=== PATIENT | female | born 1950 | race Caucasian/White ===

== ENCOUNTER 2019-07-28 08:34 | Inpatient (IN) | payer MEDICARE, OTHER ==
[~2019-07-28] VITALS: Ht 160 cm; Wt 78.5 kg
[2019-07-28] VITALS (14 sets, daily range): BP systolic 106–133; BP diastolic 43–77; BMI 30.7
--- NOTE | ~2019-07-28 | HEMODYNAMI ---
PATIENT:ROSINA WADE MEDICAL RECORD: [id number] : 52 [facility] ADMISSION DATE: 07/28/19 Generatedon:07/28/20199:46 Patient name: ROSINA WADE Patient #: [id number] SSN: : 1950 Date of study: 07/28/2019 Page: Of Hemodynamic Procedure Report Patient Data Patient Demographics Procedure consent was obtained First Name: ROSINA Gender: Female Last Name: MAURO : 1950 Patient #: [id number] Age: 68 year(s) Race: Unknown Additional ID: [id number] Contact details Address: Counts include [address] beds at the [facility] NO KNOWN ADDRESS State: [place] City: [facility] Zip code: [address] Past Medical History Allergies: No known allergies Admission Admission Data Admission Date: 07/28/2019 Admission Time: 8:51 Arrival Date: 07/28/2019 Arrival Time: 0:00 Admit Source: Emergency department Room #: [facility] Procedure Procedure Types Cath Procedure Diagnostic Procedure [facility] w/Coronaries FFR/IVUS FFR Initial Sedation Charges Moderate Sedation up to 30 minutes PCI Procedure AMI/SVG/CROSS COUNTRY COACH PTCA or Stent AMI-BMS/TRAVIS Initial Peripheral Cath Diagnostic Procedure Wood Model Maker Peripheral Procedures AFRO (Diagnostic) Peripheral vascular Intervention Stent Stent Iliac w/plasty Initial Procedure Description Procedure Date Procedure Date: 07/28/2019 Procedure Start Time: 9:03 Procedure End Time: 9:39 Procedure Staff Name Function Matt Tobar MD Performing Physician Tyesha Rausch RT Monitor Nimo Beaver RN Nurse Ariana Monte RT Scrub Audra Gonzales RT Monitor Indication Unstable angina Procedure Data Cath Procedure Fluoroscopy Diagnostic fluoroscopy Total fluoroscopy Time: 6.1 time: 6.1 min min Diagnostic fluoroscopy Total fluoroscopy dose: 703 dose: 703 mGy mGy Contrast Material Contrast Material Type Amount (ml) Isovue 300 192 Entry Location Entry Primary Successful Side Size Upsize 1 Upsize Entry Closure Joseph ccessful Closure Location (Fr) (Fr) 2 (Fr) Remarks Device Remarks Femoral Right 6 Fr 6 Fr Exoseal artery Short Mid-Length Femoral Right 6 Fr vein Short Estimated blood loss: 10 ml Diagnostic catheters Device Type Used For End Catheter Placement MULTIPACK 3DRC 5Fr Procedure catheter MULTIPACK JL 4.0 5Fr Procedure catheter MULTIPACK Pigtail 5 Fr Procedure catheter Procedure Complications No complications Procedure Medications Medication Administration Route Dosage 0.9% NaCl I.V. 100 ml/hr Oxygen etCO2 Nasal cannula 2 l/min Lidocaine 2% added to field 20 Heparin Flush Bag added to field 2 bags (1000units/500ml NS) Versed 2 mg Fentanyl I.V. 50 mcg Fentanyl I.V. 50 mcg Heparin Bolus I.V. 4000 units Integrilin (Bolus I.V. 5.6 ml 2mg/ml) Integrilin (Bolus wasted 4.4 ml 2mg/ml) Hemodynamics Rest Heart Rate: 72 (bpm) Snapshots Pre Cath Intra NCS Post Cath Vital Signs Time Heart Resp SPO2 etCO2 NIBP Rhythm Pain Sedation Rate (ipm) (%) (mmHg) (mmHg) Status Level (bpm) 8:59:38 85 13 94 16.6 113/68(80) NSR 0 (11) 10(A) , No pain 9:03:42 68 26 95 12.8 103/66(78) NSR 0 (11) 10(A) , No pain 9:07:42 64 21 94 17.4 94/70(76) NSR 0 (11) 10(A) , No pain 9:11:46 78 20 95 17.4 99/57(80) NSR 0 (11) 9(A) , No pain 9:15:54 83 21 95 20.4 93/53(66) NSR 0 (11) 9(A) , No pain 9:19:57 46 18 96 15.9 81/57(64) NSR 0 (11) 9(A) , No pain 9:23:55 73 25 96 20.4 93/62(76) NSR 0 (11) 9(A) , No pain 9:27:54 71 27 97 18.9 99/68(86) NSR 0 (11) 10(A) , No pain 9:31:56 76 17 97 19.7 103/70(81) NSR 0 (11) 10(A) , No pain 9:36:00 76 23 96 10.6 108/67(90) NSR 0 (11) 10(A) , No pain Medications Time Medication Route Dose Verified Delivered Reason Notes Effectiveness by by 8:55:11 0.9% NaCl I.V. 100 Matt Nimo used for ml/hr Amadou Beaver automatic washer mechanic 8:55:17 Oxygen etCO2 2 Matt Nimo used for Nasal l/min Amadou Beaver procedure cannula RN 8:56:04 Lidocaine 2% added 20ml Matt Matt for local to vial Amadou Tobar MD anesthetic field 8:56:08 Heparin Flush added 2 Matt Matt used for Bag to bags Amadou Tobar MD procedure (1000units/500ml field NS) 9:00:49 Versed 2 mg Matt Nimo for sedation Amadou Beaver RN 9:00:56 Fentanyl I.V. 50 Matt Nimo for sedation mcg Amadou Beaver RN 9:06:20 Fentanyl I.V. 50 Matt Nimo for sedation mcg Amadou Beaver RN 9:09:20 Heparin Bolus I.V. 4000 Matt Nimo for verifi ed units Amadou Beaver anticoagulation with Dr. JIMMY Tobar 9:09:33 Integrilin I.V. 5.6 Matt Nimo for (Bolus 2mg/ml) ml Amadou Beaver antiplatelet RN therapy 9:09:44 Integrilin wasted 4.4 Matt Nimo for (Bolus 2mg/ml) ml Amadou Beaver antiplatelet RN therapy Procedure Log Time Note 8:46:54 Admit Source: Emergency department 8:46:57 Arrival Date: 07/28/2019 12:00:00 AM 8:47:38 Diagnostic Cath Status : Emergency 8:48:52 Indication : Unstable angina 8:49:10 ACC Patient presents with STEMI CCS Anginal Class 4--Inability to carry out any physical activity w/o angina. Angina may occur at rest. 8:49:19 Procedure Status Emergent Heart Cath (AMI). 8:49:22 Audra Gonzales RT(R) sent for patient. Start room use. 8:49:24 Time tracking: Regular hours (M-F 7:00 - 5:00) 8:49:29 Plan of Care:Hemodynamics will remain stable., Cardiac rhythm will remain stable., Comfort level will be maintained., Respiratory function will remain adequate., Patient/ family verbilizes understanding of procedure., Procedure tolerated without complication., Recovers from procedure without complications.. 8:49:32 Patient arrives emergently. 8:49:41 Patient received from ED to CCL 1 Alert and oriented. Tansferred to table in Supine position. 8:50:03 H&P Date Dictated: 07/28/2019 Emergent; H&P N/A. 8:50:15 Use device set Femoral Dx 8:50:16 ACIST Syringe (35844) opened to sterile field. 8:50:17 Bag Decanter (2002S) opened to sterile field. 8:50:17 Medline Cath Pack ([id number]) opened to sterile field. 8:50:19 ACIST Hand Control (14942) opened to sterile field. 8:50:20 ACIST Manifold (82351) opened to sterile field. 8:50:21 DIAGNOSTIC Multipack 5Fr catheter set ([id number]) opened to sterile field. 8:50:24 EMERALD Guide Wire (502-455) opened to sterile field. 8:50:52 CHOICE PT Extra Support 182cm wire ([id number]) opened to sterile field. 8:50:53 SHEATH 6FR Garvin (CRO741) opened to sterile field. 8:50:55 INFLATOR Merit BasixCompak ([id number]) opened to sterile field. 8:53:48 Signed procedure consent form obtained from patient. 8:53:49 Warm blankets applied, and satnam hugger turned on for patient comfort. 8:53:50 Correct patient and procedure confirmed by team. 8:53:53 Pre-procedure instructions explained to patient. 8:54:02 Family unavailable. 8:54:27 Patient NPO since Midnight. 8:54:47 Patient allergic to No known allergies 8:54:50 Is the patient allergic to Iodine/contrast media? No. 8:54:52 Was the patient premedicated? Yes 8:55:01 Is patient on blood thinner?No 8:55:11 0.9% NaCl 100 ml/hr I.V. was administered by Nimo Beaver RN; used for procedure; Verbal order read back and verified. 8:55:17 Oxygen 2 l/min etCO2 Nasal cannula was administered by Nimo Beaver RN; used for procedure; Verbal order read back and verified. 8:55:53 Patient diabetic? No. 8:56:01 Snore? No 8:56:03 Sleep apnea? No 8:56:04 Lidocaine 2% 20ml vial added to field was administered by Matt Tobar MD; for local anesthetic; Verbal order read back and verified. 8:56:08 Heparin Flush Bag (1000units/500ml NS) 2 bags added to field was administered by Matt Tobar MD; used for procedure; Verbal order read back and verified. 8:56:12 Dentures? No ? 8:56:22 Patient pain scale 4/10 ?. 8:56:32 IV patent on arrival in right antecubital with 0.9% NaCl at [facility]. 8:56:59 Stress Test: yes; N/A ? 8:57:18 Right groin area was prepped with chlora-prep and draped in sterile fashion 8:57:20 Alarms reviewed by R. N. 8:57:20 Sharps counted by scrub and verified by R.N. 8:57:41 Deviated septum? No 8:57:41 Opens mouth fully? Yes 8:57:42 Sticks out tongue? Yes 8:57:43 Airway obstruction? No ? 8:57:57 Lab results pending. 8:58:10 Patient not . Patient is over age 55. 8:58:12 Previous problem with sedation/anesthesia? No ? 8:58:21 Vital chart was started 8:59:17 Baseline sample Acquired. 8:59:18 ECG and BP/O2 sat monitors applied to patient. 8:59:23 Rhythm: sinus rhythm 8:59:24 Full Disclosure recording started 8:59:42 --------ALL STOP TIME OUT------ 8:59:43 Final Timeout: patient, procedure, and site verified with staff and physician. All members of the team are in agreement. 8:59:45 Right groin site verified by team. 8:59:49 Fire Safety Assessment: A--An alcohol-based skin anteseptic being used preoperatively., C--Open oxygen or nitrous oxide is being used., D--An ESU, laser, or fiber-optic light is being used. 8:59:52 Physical assessment completed. ASA score P 3 - A patient with severe systemic disease as per Matt Tobar MD. 8:59:56 Sedation plan: IV Moderate Sedation Medication:Versed, Fentanyl 9:00:49 Versed 2 mg was administered by Nimo Beaver RN; for sedation; Verbal order read back and verified. 9:00:56 Fentanyl 50 mcg I.V. was administered by Nimo Beaver RN; for sedation; Verbal order read back and verified. 9:02:24 Procedure started. 9:03:13 Local anesthetic to right femoral artery with Lidocaine 2% by Matt Tobar MD.INITIAL ACCESS ONLY 9:03:37 IV Extension Set opened to sterile field. 9:05:05 GLIDE WIRE Super Stiff Angled 260cm ([id number]) opened to sterile field. 9:05:39 GLIDE WIRE USED TO ADVANCE SHEATH. 9:06:20 Fentanyl 50 mcg I.V. was administered by Nimo Beaver RN; for sedation; Verbal order read back and verified. 9:06:37 A 6 Fr Short sheath was inserted into the Right Femoral artery 9:06:45 A MULTIPACK 3DRC 5Fr catheter was advanced over the wire and used for Procedure. 9:06:53 RCA angiography performed. 9:07:00 Catheter exchanged over wire. 9:07:23 A MULTIPACK JL 4.0 5Fr catheter was advanced over the wire and used for Procedure. 9:08:37 LCA angiography performed. 9:08:38 Catheter exchanged over wire. 9:08:42 ACCDominant side:Left 9:08:48 GUIDE 6FR XBLAD 3.5 catheter ([id number]) opened to sterile field. 9:09:18 6 Fr XBLAD 3.5 guide catheter was inserted over the wire 9:09:20 Heparin Bolus 4000 units I.V. was administered by Nimo Beaver RN; for anticoagulation; verified with Dr. Tobar Verbal order read back and verified. 9:09:33 Integrilin (Bolus 2mg/ml) 5.6 ml I.V. was administered by Nimo Beaver RN; for antiplatelet therapy; Verbal order read back and verified. 9:09:44 Integrilin (Bolus 2mg/ml) 4.4 ml wasted was administered by Nimo Beaver RN; for antiplatelet therapy; Verbal order read back and verified. 9:09:57 CHOICE ES 182 wire advanced. 9:10:32 Wire advanced across lesion. 9:11:37 Place stent Inflation Number: 1 A JACKELIN RX 3.0 x 15 stent ([id number]) was prepped and advanced across the Prox LAD . The stent was deployed at 11 JOZEF for 0:00 (min:sec) . 9:12:04 Stent catheter was removed intact over wire. 9:14:31 Place stent Inflation Number: 1 A JACKELIN RX 2.25 x 15 stent ([id number]) was prepped and advanced across the Mid LAD . The stent was deployed at 13 JOZEF for 0:00 (min:sec) . 9:14:56 Stent catheter was removed intact over wire. 9:14:58 Wire removed. 9:15:07 [employer]oupe [employer] Verrata Plus pressure wire (24066W) opened to sterile field. 9:15:56 FFR/IFR wire advanced. 9:16:34 mCirc lesion measured at .92 with IFR 9:16:44 Wire removed. 9:16:48 Guide catheter removed. 9:16:55 A MULTIPACK Pigtail 5 Fr catheter was advanced over the wire and used for Procedure. 9:17:40 LV gram done using JOLLY 9:17:44 Injector settings: Ml/sec: 10, Volume: 20, 9:19:39 EF : 10 % 9:20:00 A 6 Fr Short sheath was inserted into the Right Femoral vein 9:20:36 5Fr J Tip Temporary Pacing Catheter ([id number]) opened to sterile field. 9:20:42 SHEATH 6FR Garvin (DFA553) opened to sterile field. 9:20:55 Temporary pacer inserted 9:22:19 PIGTAIL PULLED DOWN FOR AFRO. 9:22:23 Abdominal angiogram w/ runoff was performed. 9:22:36 Right leg runoff performed. 9:22:37 Left leg runoff performed. 9:22:55 Catheter exchanged over wire. 9:23:06 SHEATH 6FR Brite Tip 35cm ([id number]) opened to sterile field. 9:23:35 Sheath upsized to a 6 Fr Mid-Length. 9:24:47 Procedure type changed to Cath procedure, Diagnostic procedure, LHC, [facility] w/Coronaries, FFR/IVUS, FFR Initial, Sedation Charges, Moderate Sedation up to 30 minutes, PCI procedure, AMI/SVG/CROSS COUNTRY COACH PTCA or Stent, AMI-BMS/TRAVIS Initial, Peripheral Cath Diagnostic Procedure, Wood Model Maker Peripheral Procedures, AFRO (Diagnostic), Peripheral vascular Intervention, Stent, Stent Iliac w/plasty Initial 9:25:45 Place stent Inflation Number: 1 A TIFFANIE 7 x 29 x 135 stent ([id number]) was prepped and advanced across the Proximal Common Iliac, Right . The stent was deployed at 13 JOZEF for 0:00 (min:sec) . 9:26:01 Stent catheter was removed intact over wire. 9:27:46 LONG SHEATH EXCHANGED FOR A SHORT SHEATH. 9:27:55 EXOSEAL 6Fr (EX600) opened to sterile field. 9:29:38 Wire removed. 9:29:47 ACT drawn and resulted at >400 seconds. (normal therapeutic range 180-240 seconds). 9:30:08 Sheath removed intact; hemostasis achieved with Exoseal to the Right Femoral artery. 9:30:31 Procedure ended.(Physican Out) 9:31:10 2-0 Silk 685H opened to sterile field. 9:33:05 Fluoroscopy time 06.10 minutes. 9:33:09 Fluoroscopy dose: 703 mGy 9:33:09 Flurop Dose total: 703 9:33:16 Dose Area Product 16528 mGy/cm. 9:33:19 Contrast amount:Isovue 300 192ml. 9:33:27 Sharps counted by scrub and verified by R.N. 9:33:44 Post-op/insertion site Right Femoral artery dressed using a 4 x 4 and Tegaderm. 9:34:09 6FR SHEATH VEIN was sutured in with 2-0 SILK. 9:34:18 Post-procedure physical assessment completed. ASA score P 3 - A patient with severe systemic disease as per Matt Tobar MD. 9:34:29 Post procedure rhythm: sinus rhythm , paced 9:34:33 Estimated blood loss: 10 ml 9:34:40 Pre PCI Site: [place] pLAD has 99% stenosis. 9:34:48 Post procedure instruction explained to patient.Patient verbalizes understanding. 9:34:49 Patient needs reinforcement of post procedure teaching. 9:38:29 Procedure and supply charges have been captured, reviewed, submitted and are correct. 9:38:31 Procedure Complication : No complications 9:38:34 Vital chart was stopped 9:38:41 LHC Findings: MVD- PCI performed (see procedure note) 9:38:44 AFRO Findings: PVD: NO EXPERIENCE performed (see procedure notes) 9:38:46 Operative report dictated upon procedure completion. 9:38:47 See physician's report for complete and final results. 9:38:50 Report given to ICU. 9:38:52 Patient transfered to ICU with Bed. 9:38:58 ACC-PCI Only Patient was given prescriptions, or instructed by Matt Tobar MD to start/continue the following medications upon discharge: Plavix 9:39:03 Procedure ended. 9:39:03 Full Disclosure recording stopped 9:39:07 End room use (Document Last) 9:42:33 Temporary pacer turned on with the following settings: Rate 40, MA 5, Mode: Demand. Intervention Summary Intervention Notes Time ActionType Lesion and Equipment Used Action# Pressure Duration Attributes 9:11:37 Place stent Prox LAD JACKELIN RX 3.0 x 1 11 00:00 15 stent ([id number]) 9:14:31 Place stent Mid LAD JACKELIN RX 2.25 x 1 13 00:00 15 stent ([id number]) 9:25:45 Place stent Proximal TIFFANIE 7 x 29 1 13 00:00 Common x 135 stent Iliac, ([id number]) Right Device Usage Item Name Manufacture Quantity Catalog Number Hospital Part Current Minimal Lot# / Charge Number Stock Stock Serial# Code ACIST Syringe Acist 1 53259 129636 655072 721345 20 (54055) Medical Systems Inc Bag Decanter Microtek 1 520710 15170 057384 5 () Medical Inc. Medline Cath Medline 1 [id number] 771714 63703 769068 5 Pack ([id number]) ACIST Hand Acist 1 34151 908611 642729 623172 5 Control Medical (71209) Systems Inc ACIST Manifold Acist 1 45832 294715 612111 421184 5 (33060) Medical Systems Inc DIAGNOSTIC Cardinal 1 IT6931 575524 00336 843307 30 Multipack 5Fr Health catheter set (VM3292) EMERALD Guide Cardinal 1 502-455 816031 273487 617214 5 Wire (502-455) Health CHOICE PT [place] 1 [id number] 386044 114149 173323 5 Extra Support Scientific 182cm wire ([id number]) SHEATH 6FR Terumo 2 RZM078 470513 903470 389613 40 Garvin (YFA691) INFLATOR Merit Merit 1 WU7639 820007 807955 023547 15 [facility] Medical (GC4250) IV Extension Hospira 1 95535-86 119439 39670 012254 5 Set GLIDE WIRE Terumo 1 LP2237 821760 777720 085408 5 Super Stiff Angled 260cm (RB5100) MULTIPACK 3DRC Cardinal 1 299383 5 5Fr catheter Health MULTIPACK JL Cardinal 1 052406 5 4.0 5Fr Health catheter GUIDE 6FR Cardinal 1 12924853 393153 218720 259573 10 XBLAD 3.5 Health catheter (87501271) JACKELIN RX 3.0 x Medtronic 1 [id number] 988914 8466662 430805 5 [id number] 15 stent ([id number]) JACKELIN RX 2.25 x Medtronic 1 [id number] 041372 4822242 426192 5 [id number] 15 stent ([id number]) Akron Akron 1 13387G 748540 279035404 777564 5 Verrata Plus pressure wire (97260J) MULTIPACK Cardinal 1 657802 5 Pigtail 5 Fr Health catheter 5Fr J Tip Iniguez 1 [id number] 024894 82618 123991 2 Temporary Lifesciences Pacing Catheter ([id number]) SHEATH 6FR Cardinal 1 [id number] 540675 077292 314518 1 Brite Tip 35cm Health (811786Y) TIFFANIE 7 x 29 Cardinal 1 [id number] 214876 92766 712405 5 x 135 stent Health ([id number]) EXOSEAL 6Fr Cardinal 1 EX600 754796 127227 794508 10 (EX600) Health 2-0 Silk 685H Ethicon 1 685H 6822056 59278 987348 5 Signature Audit [place] Stage Time Signature Unsigned Intra-Procedure 07/28/2019 Audra Gonzales 9:46:14 AM RT(R) Intra-Procedure 07/28/2019 Nimo Beaver 9:46:40 AM RN Intra-Procedure 07/28/2019 Matt Tobar 9:46:55 AM [facility] [address] [place] [address]
--- NOTE | ~2019-07-28 | DS ---
PATIENT:ROSINA WADE :52 MEDICAL RECORD: [id number] DISCHARGE SUMMARY ADMISSION DATE: 07/28/19 DISCHARGE DATE: 07/31/19 DIAGNOSES: 1. Acute myocardial infarction. 2. Coronary artery disease. 3. Percutaneous transluminal coronary angioplasty stent left anterior descending this admission. HOSPITAL COURSE: Mrs. Wade presents with an acute anterior myocardial infarction. Unfortunately, she waited at home for 4 days having her myocardial infarction. She underwent successful PTCA stent of the LAD; however, ejection fraction was in the 10% range. She did remarkably well. She was placed on losartan 25 mg b.i.d., aspirin, Plavix, resume her Zocor that she was on at home. No beta marco a was undertaken secondary to bradycardia and hypotension. She will follow up with [facility] in 1 month. TRANSINT:[id number] Voice Confirmation ID: [id number] DOCUMENT ID: [id number] ANTONINO GEORGE MD CC: [id number] DICTATION DATE: 07/31/19 1026 SURFACE GRINDER TENDER: 08/01/19 0113 DIS IN 07/31/19 [facility] [address] [place] [address]
[2019-07-28 09:03] LABS: HEMATOCRIT 39.9 % (36.0-48.0); HEMOGLOBIN 13.6 g/dL (12-16); MCH 30.6 pg (26.0-34.0); MCHC 34.1 g/dL (31.0-37.0); MCV 89.9 fL (80.0-100.0); MEAN PLATELET VOLUME 9.8 fL (7.4-10.4); PLATELET COUNT 253 10x3/uL (130-400); RBC 4.44 10x6/uL (4.00-5.40); RDW 13.4 % (11.5-14.5); WBC 23.7 10x3/uL (4.8-10.8)
[2019-07-28] MEDS ORDERED: ZOLOFT100 MG PO (09:03)
[2019-07-28] MEDS ORDERED: ZOCOR20 MG PO (09:03)
[2019-07-28] MEDS ORDERED: TOPROL XL50 MG PO (09:03)
[2019-07-28] MEDS ORDERED: LISINOPRIL20 MG PO (09:04)
[2019-07-28 09:07] LABS: CALC OSMOLALITY 289 mosm/kg (275-300); CALCIUM 8.6 mg/dL (8.5-10.1); CHLORIDE - SERUM 110 mmol/L (98-107); CREATININE - SERUM 0.9 mg/dL (0.6-1.3); GLUCOSE 143 mg/dL (74-106); POTASSIUM - SERUM 4.1 mmol/L (3.5-5.1); SODIUM 143 mmol/L (136-145); UREA NITROGEN 22 mg/dL (7-18); eGFR NON AFRICAN AMERICAN 66 mL/min (90-120)
[2019-07-28 09:18] LABS: INR 1.22 (0.85-1.17); PROTIME 14.8 SECONDS (11.6-15.0)
[2019-07-28 09:28] LABS: ALBUMIN 3.4 g/dL (3.4-5.0); ALKALINE PHOSPHATASE 64 U/L (46-116); ALT (SGPT) 54 U/L (10-68); BILIRUBIN - TOTAL 0.33 mg/dL (0.2-1.3); CREATINE KINASE 361 UL (21-215); MAGNESIUM - SERUM 1.9 mg/dL (1.8-2.4)
[2019-07-28 09:33] LABS: TROPONIN-I 4.352 ng/mL (0.000-0.060)
[2019-07-28 09:49] LABS: APTT 194.4 SECONDS (22.8-39.4)
--- NOTE | 2019-07-28 10:17 | NUR ---
ASSESSMENT COMPLETE PER FLOW SHEET. VSS. REFER FOR COMPLETE FINDINGS. R GROIN CATH SITE DI, MINIMAL BLEEDING NOTED ON DRSG SHIPPING COORDINATOR AWARE. NO HEMATOMA, PAIN BRUISING OR SWELLING NOTED TO SITE. TPM WIRE SITE PATENT TPM DDD AMA 0.8 VMA 5 A-SENS 0.5 V-SENS 2.0 A-V INTERVAL 24. HR 81 NSR BP 106/81. BILAT PEDAL PULSES PALP +2 R RADIAL PULSE FOUND VIA DOPPLER HARDLY AUDIBLE. L RADIAL PULSE PALP +2. PT GIVEN ICE CHIPS FOR COMFORT.
[2019-07-28 10:41] LABS: LYMPHOCYTES 12 % (15-50); MONOCYTES 9 % (2-11); NEUTROPHILS 79 % (40-80)
[2019-07-28 10:42] LABS: PLATELET ESTIMATE NORMAL; ROULEAUX OCC
--- NOTE | 2019-07-28 11:02 | NUR ---
patient complaining of sob. trying to raise up in bed because she states she feels like she cant catch her breath. will continue to monitor. high flow provided and titrated o2 to 8 L spo2 86%
--- NOTE | 2019-07-28 11:15 | NUR ---
SPOKE WITH PATIENT REGARDING CODE STATUS. FULL CODE.
--- NOTE | 2019-07-28 11:15 | NUR ---
CHEST XR AT BEDSIDE
--- NOTE | 2019-07-28 11:30 | NUR ---
SPOKE WITH DR GEORGE REGARDING DESATURATION OF OXYGEN. NEW ORDERS TO GIVE 40 OF LASIX NOW AND START ON DOBUTAMINE DRIP AT FIXED RATE OF 5
--- NOTE | 2019-07-28 11:54 | NUR ---
pulses palp in lower extremities bilat. no s/s of bleeding or hematoma. log rolled patient for use of bedpan
--- NOTE | 2019-07-28 12:46 | NUR ---
ECHO AT BEDSIDE
--- NOTE | 2019-07-28 15:28 | NUR ---
PATIENT 4 HOUR STRAIGHT LEG OVER. RESTING. EASILY AROUSED. NO ACUTE DISTRESS. SEE ASSESSMENT. NO CHANGES. SEE ADL'S.
--- NOTE | 2019-07-28 16:18 | NUR ---
patient started to vomit. zofran given. hr up to 158. dobutamine paused. paged dr gutiérrez
--- NOTE | 2019-07-28 16:36 | NUR ---
st mireles paged back. new orders given
[2019-07-29] VITALS (24 sets, daily range): BP systolic 108–138; BP diastolic 27–81; Ht 160 cm; Wt 78.5 kg
--- NOTE | 2019-07-29 07:26 | NUR ---
REPORT RECIEVED. OFF DOBUTAMINE DRIP. HR NSR. BP STABLE. SEE ASSESSMENT. SEE ADL'S. NO ACUTE DISTRESS. 3 L NC. DENIES PAIN AND NEEDS DURING THIS TIME. BED RAILS X2. BED LOW AND LOCKED. TEMPORARY PACEMKAER HANGING AT BEDSIDE. SETTING THIS MORNING IS DDD 40 RATE AMA .8 VMA 5 A SENSITIVITY .5 V SENSITIVITY 2.0 A-V INTERVAL 24
--- NOTE | 2019-07-29 11:20 | NUR ---
GOT A HOLD OF DR GEORGE TO GET A DIET FOR THE PATIENT
--- NOTE | 2019-07-29 11:20 | NUR ---
NO S/S OF BLEEDING OR HEMATOMA. PATIENT MOVES AROUND INDEPENDENTLY IN BED. WILL CONTINUE TO MONITOR PATINET.
--- NOTE | 2019-07-29 12:00 | NUR ---
DR GEORGE STATED IF SHE STAYS ABOVE THE PACEMAKER THAN I NEEDED TO PULL IT
--- NOTE | 2019-07-29 12:00 | NUR ---
PACEMAKER TURNED OFF BY DR GEORGE
--- NOTE | 2019-07-29 13:25 | NUR ---
patient tray provided. tolerating well. tolerating liquids. educated on zofran. denies pain and needs. will continue to monitor
--- NOTE | 2019-07-29 15:53 | NUR ---
TJ FROM [employer]HALT DISTRIBUTOR OPERATOR AT BEDSIDE. PULLED TEMPORARY PACEMAKER. NO RYTHM CHANGES. SINUS AT 92 BPM.
--- NOTE | 2019-07-29 16:32 | NUR ---
NO S/S OF BLEEDING OR HEMATOMA. LYING FLAT. NO EKG CHANGES
--- NOTE | 2019-07-29 17:22 | NUR ---
chg bath and linen change done at this time.
[2019-07-30] VITALS (15 sets, daily range): BP systolic 92–121; BP diastolic 50–72
--- NOTE | 2019-07-30 13:00 | NUR ---
REPORT RECIEVED FROM ABAD GREENFIELD RN. VSS. PT DENIES PAIN AT THIS TIME. RIGHT GROIN SOFT TO PALPATION. CALL LIGHT IN REACH. WILL CONT POC.
--- NOTE | 2019-07-30 14:04 | HP ---
PATIENT: ROSINA WADE MEDICAL RECORD: [id number] ACCOUNT: [id number] LOCATION:[facility] : 52 ADMISSION DATE: 07/28/19 PCP: ANTONINO GEORGE MD HISTORY AND PHYSICAL EXAMINATION DIAGNOSES: 1. Acute anterior myocardial infarction. 2. Coronary artery disease. 3. Previous percutaneous transluminal coronary angioplasty stent. HISTORY OF PRESENT ILLNESS: Mrs. Wade has a history of PTCA stent in the distant past, has been having 4 days of chest pain, presented to [facility] with the chest pain, was diagnosed with an acute anterior myocardial infarction, transferred here for higher level of care. PHYSICAL EXAMINATION: CONSTITUTIONAL/GENERAL APPEARANCE: Well nourished, well developed, appears stated age. EYES: Lids and conjunctivae noninjected. No discharge. No pallor. ENT: Lips within normal limit. No cyanosis. No pallor. NECK: Carotid arteries, bilateral normal upstroke. No bruits. No thrills. No jugular venous pressure or distention. CERVICAL LYMPH NODES: Nontender. Nonenlarged. THYROID: Not enlarged. No nodules. CARDIOVASCULAR: Precordial exam, nondisplaced. No heaves or pericardial thrills. Rate and rhythm, regular. Heart sounds, normal S1, normal S2. No S3, no gallop, no rub. Systolic murmur, not heard. Diastolic murmur, not heard. RESPIRATORY: Respiratory effort, unlabored. Normal curvature. No thoracic deformity. No chest wall tenderness. Percussion, resonant. Auscultation, clear. No wheezes, no rales, no rhonchi. ABDOMEN: Soft, nondistended, nontender. No abdominal pain, no vomiting and normal appetite. MUSCULOSKELETAL: No joint tenderness, normal gait, normal tone. SKIN: Warm and dry. OVERALL IMPRESSION: Acute anterior myocardial infarction. We will proceed with coronary angiography. Further care depends upon the findings of the angiography. TRANSINT:[id number] Voice Confirmation ID: [id number] DOCUMENT ID: [id number] ANTONINO GEOREG MD at 1404 CC: [id number] DICTATION DATE: 07/28/19934 PER DIEM: 07/28/19 0954 ADM IN [place] [id number] [place] [address]
--- NOTE | 2019-07-30 14:04 | OP ---
PATIENT NAME: ROSINA WADE MEDICAL RECORD: [id number] :52 LOCATION[facility] D.2311 ADMISSION DATE:07/28/19 SURGEON: ANTONINO GEORGE MD DATE OF OPERATION: 07/28/2019 PROCEDURE: 1. PTCA stent LAD. 2. Left heart catheterization. 3. Selective coronary angiography. 4. Left ventriculogram. INDICATION: Acute anterior myocardial infarction. PROCEDURE PERFORMED: After informed consent was obtained and after a detailed description of risks, benefits as well as alternative therapies, the patient elected to proceed with angiogram and angioplasty. The right femoral area was cannulated via modified Seldinger technique with placement of a 6-Sami arterial and venous sheath, a temporary pacemaker was undertaken secondary to bradycardia during the procedure. FINDINGS: Left ventriculogram was performed in standard 30-degree JOLLY view, reveals global hypokinesis throughout all segments. Overall ejection fraction is 10%. SELECTIVE CORONARY ANGIOGRAPHY: 1. Left main is with no significant angiographic disease. 2. Left anterior descending has 99% stenosis followed by a 90% stenosis in the mid vessel. 3. Left circumflex has mild irregularities, but no flow-limiting stenosis. 4. Right coronary has 100% stenosis in the mid vessel. This is chronic total occlusion. PTCA STENT OF THE LAD: The stents used were 3.0 x 15 and 2.25 x 15, both [place] stents. Result was 0% residual stenosis. OVERALL IMPRESSION: Successful percutaneous transluminal coronary angioplasty stent of the left anterior descending going from 99% initial stenosis to 0% residual. TRANSINT:[id number] Voice Confirmation ID: [id number] DOCUMENT ID: [id number] ANTONINO GEORGE MD at 1404 CC: [id number] DICTATION DATE: 07/28/19 0934 SENIOR CREDIT OFFICER: 07/28/19 1146 [place] [address]
--- NOTE | 2019-07-30 14:04 | EC ---
PATIENT:ROSINA WADE DATE OF SERVICE: 07/28/19 SEX: F MEDICAL RECORD: [id number] DATE OF : [birth year] LOCATION:[facility] D231 AGE OF PATIENT: 68 ADMISSION DATE: 07/28/19 REFERRING PHYSICIAN: INTERPRETING PHYSICIAN: ANTONINO TOBAR MD ECHOCARDIOGRAM REPORT ECHO CHARGES 4 ECHO COMPLETE Date: 07/28/19 CLINICAL DIAGNOSIS: RI/ASSESS EF ECHOCARDIOGRAPHIC MEASUREMENTS (adult normal given) AC root (d.<3.7cm) 3.1 cm LV Septum d (<1.2 cm> 1.2 cm Valve Excursion 1.1 cm LV Septum (systole) 1.3 cm Left Atria (s.<4.0cm> 4.4 cm LVPW d(<1.2cm) 1.3 cm RV (d.<2.3cm) 3.2 cm LVPW (sytole) 1.4 cm LV diastole(<5.6CM) 5.8 cm MV E-F(>70mm/sec) cm LV systole 4.9 cm LVOT Diameter 1.9 cm MV exc.(>10mm) 1.3 cm Est.ejection fraction (50-75%) % DOPPLER: LVIT cm/sec A 111.0cm/sec E cm/sec LA cm/sec RVSP 39 mmHg LVOT 68.0 cm/sec AOP1/2T m/s Asc. Ao 119 cm/sec RVOT cm/sec RA cm/sec PA cm/sec AV Gradient Peak 5.65 mmHg AV Mean 3.14 mmHg AV Area 1.6 cm MV Gradient Peak 9.45 mmHg MV Mean 4.17 mmHg MV Area cm COMMENTS: Blueprint Assembler: Vale CAMPO Continuous Dryout Operator Helper: 1 Dr. Tobar TAPE# PACS Pericardial Effusion N DATE OF SERVICE: ECHOCARDIOGRAM FINDINGS: 1. Left ventricular chamber size is mildly dilated. Left ventricular systolic function is moderately reduced at 30%. 2. Left atrium is enlarged at 4.4 cm. Right atrium and right ventricle chamber sizes are within normal limits. 3. Valvular structures have normal structure and motion. ECHOCARDIOGRAM REPORT [id number] ROSINA WADE 4. Doppler interrogation reveals mild mitral regurgitation, [id number] tricuspid regurgitation, no other valvular insufficiency or stenosis. Pulmonary systolic pressure estimated 39 mmHg. 5. No evidence of pericardial effusion or left ventricular thrombus. TRANSINT:[id number] Voice Confirmation ID: [id number] DOCUMENT ID: [id number] ANTONINO TOBAR MD at 1404 CC: [id number] DICTATION DATE: 07/29/19 1005 FOREMAN SHIPPING DEPARTMENT: 07/29/19 1302 ADM IN [facility] [address] [place] [address]
--- NOTE | 2019-07-30 14:04 | OP ---
PATIENT NAME: ROSINA WADE MEDICAL RECORD: [id number] :52 LOCATION:D.[facility] D.2311 ADMISSION DATE:07/28/19 SURGEON: ANTONINO GEORGE MD DATE OF OPERATION: 07/28/2019 PROCEDURES: 1. GM VIDEO stent, iliac right. 2. Aortofemoral runoff. INDICATION: A 100% occlusion of the right iliac at time of cardiac catheterization for acute myocardial infarction traversed with a long stiff Glidewire for the cardiac intervention. PROCEDURES IN DETAIL: After informed consent was obtained and after detailed explanation of risks, benefits as well as alternative therapies, the patient elected to proceed with angiogram and angioplasty. The right femoral area had a 6-Hungarian sheath from coronary intervention. All catheters exchanged through this sheath. FINDINGS: The abdominal aortography was performed. The catheter was pulled down for aortofemoral runoff. Abdominal aortography reveals no significant abdominal aortic disease, no dissection or aneurysm formation. RIGHT LEG: A. Iliac: The iliac is 100% occluded. Only traversed by the wire, this is at the common iliac. The internal and external iliacs have mild irregularities, but no flow-limiting stenosis. B. Femoral system: The common superficial and deep femoral have mild irregularities, but no flow-limiting stenosis. C. Popliteal and infrapopliteal vessels are patent with good 3-vessel runoff to the foot, although mildly diffusely diseased. LEFT LEG: A. Iliac: The common internal and external iliacs have mild irregularities, but no flow-limiting stenosis. B. Femoral system: The common superficial and deep femoral have mild irregularities, but no flow-limiting stenosis. C. Popliteal and infrapopliteal vessels are patent with good 3-vessel runoff to the foot. GM VIDEO STENT OF THE RIGHT COMMON ILIAC: The stent balloon combination used was a 7 x 29 Ne. Result was 0% residual stenosis. OVERALL IMPRESSION: Successful percutaneous transluminal angioplasty stent of the right iliac going from 100% initial stenosis to 0% residual. TRANSINT:[id number] Voice Confirmation ID: [id number] DOCUMENT ID: [id number] OPERATIVE REPORT [id number] ROSINA WADE ANTONINO GEORGE MD at 1404 CC: [id number] DICTATION DATE: 07/28/19 0934 NETWORK ADMINISTRATOR: 07/28/19 1145 ADM IN [facility] [address] [place] [id number]
--- NOTE | 2019-07-30 15:00 | NUR ---
PT VSS. CALL LIGHT IN REACH. WILL CONT POC.
--- NOTE | 2019-07-30 17:52 | NUR ---
PT RESTING WATCHING TV. NSR. VSS. GROIN SOFT TO PALPATATION CALL LIGHT IN REACH. WILL CONT POC
--- NOTE | 2019-07-30 20:05 | MORECARE ---
CASE MANAGEMENT DISCHARGE SUMMARY PATIENT: ROSINA WADE UNIT: [id number] ADM DATE: 07/28/19 AGE: 68 : 51 SEX: F ROOM/BED: D.2311 AUTHOR: BOYD NAGEL PHYSICIAN: REFERRING PHYSICIAN: ANTONINO GEORGE MD DATE OF SERVICE: 07/30/19 Discharge Plan Patient Name: ROSINA WADE [facility] : 1950 Planned Disposition: Anticipated Discharge Date: Discharge Date: Expected LOS: Initial Reviewer: [email or web address] Initial Review Date: 07/28/2019 Generated: 07/30/19 9:04 pm DCPIA - Discharge Planning Initial Assessment Updated by [email or web address]: Yulisa Lee on 07/30/19 8:04 pm * Is the patient Alert and Oriented? Yes * How many steps to enter\exit or inside your home? * PCP LEIF MORRIS * [facility]acy [facility] * Preadmission Environment Home with Family * ADLs Independent * Equipment None * List name and contact numbers for known caregivers / representatives who currently or will assist patient after discharge: ALVARO WDAE - [facility] - [phone] * Verbal permission to speak to the caregivers and representatives has been obtained from the patient. Yes * Community resources currently utilized None * Additional services required to return to the preadmission environment? No * Can the patient safely return to the preadmission environment? Yes * Has this patient been hospitalized within the prior 30 days at any hospital? No Patient Name: ROSINA WADE Page [phone] at 2005 All edits/amendments must be made on the electronic document DICTATION DATE: 07/30/192003 SENIOR CONTROL SYSTEMS ENGINEER: AYAD 07/30/192003 RPT#: [id number] DC DATE: STATUS: ADM IN [facility] [address] [place] [address] END OF REPORT
--- NOTE | 2019-07-30 20:12 | MORECARE ---
CASE MANAGEMENT DISCHARGE SUMMARY PATIENT: ROSINA WADE UNIT: [id number] ADM DATE: 07/28/19 AGE: 68 : 51 SEX: F ROOM/BED: D.2311 AUTHOR: ROBEDOC PHYSICIAN: REFERRING PHYSICIAN: ANTONINO GEORGE MD DATE OF SERVICE: 07/30/19 Discharge Plan Patient Name: ROSINA WADE Facility: [facility]:[place] : 1950 Planned Disposition: Anticipated Discharge Date: Discharge Date: Expected LOS: Initial Reviewer: [email or web address] Initial Review Date: 07/28/2019 Generated: 07/30/19 9:11 pm Comments DCP- Discharge Planning Updated by [email or web address]: Yulisa Lee on 07/30/19 7:[address] Patient Name: ROSINA WADE Admission Status: ER Accout number: [id number] Admission Date: 07-28-2019 : 1950 Admission Diagnosis: Attending: SUSI GEORGE Current LOS: 2 Anticipated DC Date: Planned Disposition: Primary Insurance: MEDICARE A & B Discharge Planning Comments: CM met with patient to complete initial dc planning assessment. CM educated patient on the CM role and verbal consent given by patient to complete assessment. Patient lives at home with her where she is independent with her care. At discharge patient plans to return home and feels this is a safe discharge. CM discussed availability of home health, rehab services, and medical equipment. Patient denied known discharge needs at this time. Her will drive her home upon discharge.CM will continue to follow and will assist as needed with dc plans/needs. Motor Analyst: Yulisa Lee DCPIA - Discharge Planning Initial Assessment Updated by [email or web address]: Yulisa Lee on 07/30/19 8:04 pm * Is the patient Alert and Oriented? Yes * How many steps to enter\exit or inside your home? * PCP LEIF MORRIS * [facility] * Preadmission Environment Home with Family * ADLs Independent * Equipment None * List name and contact numbers for known caregivers / representatives who currently or will assist patient after discharge: ALVARO WADE - [facility] - [phone] * Verbal permission to speak to the caregivers and representatives has been obtained from the patient. Yes * Community resources currently utilized None * Additional services required to return to the preadmission environment? No * Can the patient safely return to the preadmission environment? Yes * Has this patient been hospitalized within the prior 30 days at any hospital? No Last DP export: 07/30/19 7:05 pm Patient Name: ROSINA WADE Page 98988 at 2012 All edits/amendments must be made on the electronic document DICTATION DATE: 07/30/192010 DOUGH MIXER OPERATOR: AYAD 07/30/192010 RPT#: [id number] DC DATE: STATUS: ADM IN [facility] [address] [place] [address] END OF REPORT
[2019-07-31] VITALS (11 sets, daily range): BP systolic 101–130; BP diastolic 52–76
--- NOTE | 2019-07-31 07:41 | NUR ---
REPORT RECIEVED. PT LYING ON RIGHT SIDE, RESTING WITH EYES CLOSED. RISE AND FALL OF CHEST NOTED. RR EVEN AND UNLABORED ON 1L NC. PT HAS A R AC PIV THAT IS SL. BED LOCKED AND IN LOWEST POSITION, CALL LIGHT WITHIN REACH. WILL CTM
--- NOTE | 2019-07-31 09:21 | NUR ---
Nutrition follow-up: Diet: heart heathly PO intake 100% x 2 s/p heart cath with temporary pacemaker labs reviewed wt: 172# RDN following.
--- NOTE | 2019-07-31 11:00 | NUR ---
DR GEORGE BY TO SEE PATIENT. GOING TO SEND HER HOME. PAPER SCRIPTS PROVIDED. PT READY TO GO HOME. CASE MANAGEMENT NOTIFIED OF DISCHARGE PLAN.
[2019-07-31] MEDS ORDERED: PLAVIX75 MG PO (11:20)
[2019-07-31] MEDS ORDERED: BAYER CHEWABLE81 MG PO (11:20)
--- NOTE | 2019-07-31 12:50 | NUR ---
DC PAPERWORK GONE OVER AND SIGNED WITH PT. ALL QUESTIONS ANSWERED. PAPER SCRIPTS GIVEN TO PT AND COPY PUT ON CHART. PIV REMOVED CATH TIP FULLY INTACT. PT STATES HER RIDE SHOULD BE HERE WITHIN THE HOUR.
--- NOTE | 2019-07-31 14:55 | NUR ---
jacquelinetent left via wheelchair.
--- NOTE | 2019-07-31 15:16 | MORECARE ---
CASE MANAGEMENT DISCHARGE SUMMARY PATIENT: ROSINA WADE UNIT: [id number] ADM DATE: 07/28/19 AGE: 68 : 51 SEX: F ROOM/BED: D.2311 AUTHOR: ROBEDOC PHYSICIAN: REFERRING PHYSICIAN: ANTONINO GEORGE MD DATE OF SERVICE: 07/31/19 Discharge Plan Patient Name: ROSINA WADE Facility: [facility]:[place] : 1950 Planned Disposition: Anticipated Discharge Date: Discharge Date: 07/31/2019 Expected LOS: Initial Reviewer: [email or web address] Initial Review Date: 07/28/2019 Generated: 07/31/19 4:16 pm Comments DCP- Discharge Planning Updated by [email or web address]: Yulisa Lee on 07/30/19 7:[address] Patient Name: ROSINA WADE Admission Status: ER Accout number: [id number] Admission Date: 07-28-2019 : 1950 Admission Diagnosis: Attending: SUSI GEORGE Current LOS: 2 Anticipated DC Date: Planned Disposition: Primary Insurance: MEDICARE A & B Discharge Planning Comments: CM met with patient to complete initial dc planning assessment. CM educated patient on the CM role and verbal consent given by patient to complete assessment. Patient lives at home with her where she is independent with her care. At discharge patient plans to return home and feels this is a safe discharge. CM discussed availability of home health, rehab services, and medical equipment. Patient denied known discharge needs at this time. Her will drive her home upon discharge.CM will continue to follow and will assist as needed with dc plans/needs. Aerospace Mechanic: Yulisa Lee DCPIA - Discharge Planning Initial Assessment Updated by [email or web address]: Yulisa Lee on 07/30/19 8:04 pm * Is the patient Alert and Oriented? Yes * How many steps to enter\exit or inside your home? * PCP LEIF MORRIS * [facility] * Preadmission Environment Home with Family * ADLs Independent * Equipment None * List name and contact numbers for known caregivers / representatives who currently or will assist patient after discharge: ALVARO WADE - [facility] - [phone] * Verbal permission to speak to the caregivers and representatives has been obtained from the patient. Yes * Community resources currently utilized None * Additional services required to return to the preadmission environment? No * Can the patient safely return to the preadmission environment? Yes * Has this patient been hospitalized within the prior 30 days at any hospital? No Coverage Notice Reviewer: [email or web address] Alok Lee Notice Issued Date-Time: 07/31/2019 12:30 Notice Type: IM Discharge Notice Notice Delivered To: Patient Relationship to Patient: Self Manager Documentation Name: Delivery Method: HAND - Hand Delivered Keshia Days: Prior Verbal Notification: Recipient Understood Notice: Yes Recipient Signature: Yes Med Rec Note Co-signed by Attending: Coverage Notice Comment: Last DP export: 07/30/19 7:12 pm Patient Name: ROSINA WADE Page 65141 at 1516 All edits/amendments must be made on the electronic document DICTATION DATE: 07/31/19 1516 PROCEDURAL NURSE: AYAD 07/31/19 1516 RPT#: [id number] DC DATE:07/31/19 STATUS: DIS IN [facility] [address] [place] [address] END OF REPORT
== END 2019-07-31 14:55 | disposition home or self-care (01) | DRG 247 ==
LOC: D.ER 08:34 → D.CLR 08:51 → D.ICU 08:51
PROVIDERS: Family Medicine; ADMIT Internal Medicine Interventional Cardiology; ATTEND Internal Medicine Interventional Cardiology
PROC: B2151ZZ Fluoroscopy of Left Heart using Low Osmolar Contrast (ICD-10-PCS; 2019-07-28)
PROC: 4A023N7 Measurement of Cardiac Sampling and Pressure, Left Heart, Percutaneous Approach (ICD-10-PCS; 2019-07-28)
PROC: 027035Z Dilation of Coronary Artery, One Artery with Two Drug-eluting Intraluminal Devices, Percutaneous Approach (ICD-10-PCS; principal; 2019-07-28 08:45)
PROC: 047C3DZ Dilation of Right Common Iliac Artery with Intraluminal Device, Percutaneous Approach (ICD-10-PCS; 2019-07-28 08:45)
PROC: B2111ZZ Fluoroscopy of Multiple Coronary Arteries using Low Osmolar Contrast (ICD-10-PCS; 2019-07-28 08:45)
DX: I21.09 ST elevation (STEMI) myocardial infarction involving other coronary artery of anterior wall (principal); I25.10 Atherosclerotic heart disease of native coronary artery without angina pectoris